=== PATIENT | female | born 1965 | race African-American/Black ===

== ENCOUNTER 2021-05-24 10:49 | Emergency (ER) | payer MEDICAID, OTHER ==
[~2021-05-24] VITALS: Ht 165.1 cm; Wt 85.0 kg
[~2021-05-24 10:49] MED LIST: ASPI-1497; BECL8.7A5; INSU3INS8; LOSA50TA3; [UNRECOGNIZED DRUG - OTHER]
[2021-05-24] MEDS ORDERED: ACETAMINOPHEN 325MG TABLET PO ONE (11:30)
[2021-05-24 11:39] LABS: EOSINOPHILS % 1.1 % (0.0-5.0); HEMATOCRIT. 42.3 % (36.0-48.0); HEMOGLOBIN. 14.4 g/dL (12.0-16.0); LYMPHOCYTES % 48.8 % (20.0-50.0); MEAN CORPUSCULAR HEMOGLOBIN 30.7 pg (28.0-32.0); MEAN CORPUSCULAR VOLUME 90.4 fL (81.0-99.0); MEAN PLATELET VOLUME 9.5 fl (7.4-10.4); MONOCYTES % 4.5 % (2.0-8.0); NEUTROPHILS % 44.6 % (40.0-76.0); PLATELET 208 x1000/uL (130-400); RED BLOOD CELL COUNT 4.68 mill/uL (4.2-5.4); RED CELL DISTRIBUTION WIDTH 13.2 % (11.6-14.6)
[2021-05-24 11:44] LABS: CHLORIDE 102 mEq/L (98-107)
[2021-05-24 11:50] LABS: ETHANOL BLOOD < 10 mg/dL
[2021-05-24 11:55] LABS: HCG SCREEN NEGATIVE
[2021-05-24] MEDS ORDERED: ONDANSETRON HCL 4MG/2ML INJ IV ONE (13:30)
[2021-05-24 15:50] LABS: CLARITY URINE CLEAR (CLEAR); COLOR URINE YELLOW (YELLOW); KETONES URINE 1+ (NEGATIVE); LEUKOCYTE ESTERASE URINE TRACE (NEGATIVE); NITRITE URINE NEGATIVE (NEGATIVE); OCCULT BLOOD URINE NEGATIVE (NEGATIVE); PH URINE 6.5 (4.5-8.0); PROTEIN URINE NEGATIVE (NEGATIVE)
[2021-05-24 16:30] VITALS: BP 135/65
[2021-05-24 17:00] LABS: *BENZODIAZEPINES SCREEN URINE NEGATIVE (NEGATIVE); METHADONE URINE SCREEN NEGATIVE (NEGATIVE)
[2021-05-24 17:01] LABS: *AMPHETAMINES SCREEN URINE NEGATIVE (NEGATIVE); CANNABINOID URINE SCREEN NEGATIVE (NEGATIVE); OPIATES URINE SCREEN NEGATIVE (NEGATIVE); PHENCYCLIDINE URINE SCREEN NEGATIVE (NEGATIVE)
[2021-05-24 17:03] LABS: *BARBITURATES SCREEN URINE NEGATIVE (NEGATIVE)
[2021-05-24 17:10] LABS: *COCAINE SCREEN URINE NEGATIVE (NEGATIVE)
== END 2021-05-24 16:40 | disposition home or self-care (01) ==
LOC: ER 11:22
DX: R53.1 Weakness (principal); E11.9 Type 2 diabetes mellitus without complications; I10 Essential (primary) hypertension; R51.9 Headache, unspecified
CPT/HCPCS: 36415; 70450; 71045; 80053; 80305; 80307; 80320; 80329; 81003; 82962; 83605; 84484; 84703; 85025; 96374; 99285; J2405; G0480